=== PATIENT | female | born 1995 ===

== ENCOUNTER 2020-10-21 18:00 | Inpatient (IN) | payer MEDICAID, OTHER, SELFPAY ==
[2020-10-21] MEDS ORDERED: ePHEDrine Sulfate 50 MG/10 ML VIAL ONE (18:49)
[2020-10-21] MEDS ORDERED: Bupivacaine 0.25% HCL 30 ML VIAL ONE (18:49)
[2020-10-21] MEDS ORDERED: Misoprostol 200 MCG TAB PR PRN (19:41)
[2020-10-21] MEDS ORDERED: Lidocaine 1% (PF) 30 ML VIAL SC PRN (19:41)
[2020-10-21] MEDS ORDERED: Promethazine HCl 25 MG/ML VIAL IM PRN (19:41)
[2020-10-21] MEDS ORDERED: Acetaminophen 500 MG TAB PO PRN (19:41)
[2020-10-21] MEDS ORDERED: Methylergonovine 0.2 MG/ML VIAL IM PRN (19:41)
[2020-10-21] MEDS ORDERED: Carboprost 250 MCG/ML AMP IM PRN (19:41)
[2020-10-21] MEDS ORDERED: Butorphanol Tartrate 1 MG/ML VIAL SLOW IVP PRN (19:41)
[2020-10-21] MEDS ORDERED: Ibuprofen 800 MG TAB PO PRN (19:41)
[2020-10-21] MEDS ORDERED: hydrALAZINE 20 MG/ML VIAL SLOW IVP PRN (19:41)
[2020-10-21] MEDS ORDERED: Ondansetron PF 4 MG/2 ML Vial IVP PRN (19:41)
[2020-10-21 19:46] VITALS: BMI 31.8
[2020-10-21] MEDS ORDERED: NS w/ Oxytocin 30 units 500 ML IV PRN (19:55)
[2020-10-21] MEDS ORDERED: NS w/ Oxytocin 30 units 500 ML IVPB SCH (20:00)
[2020-10-21] MEDS: Lactated Ringer's 1,000 ML IV SCH (20:25)
[2020-10-21 20:46] LABS: Hemoglobin 11.9 g/dL (12.0-15.5); Mean Corpuscular HGB CONC 34.4 g/dL (32.0-36.0); Mean Corpuscular Hemoglobin 30.1 pg (27.0-33.0); Mean Corpuscular Volume 87.6 fl (81.6-98.3); Mean Platelet Volume 13.9 fl (7.4-10.4); Platelet Count 143 10x3/uL (150-450); RBC Distribution Width 12.9 % (11.5-14.5); Red Blood Cell (RBC) Count 3.95 10x6/uL (3.90-5.03); White Blood Cell (WBC) Count 5.8 10x3/uL (3.5-10.5)
[2020-10-21 21:14] LABS: Hep B Surf Ag Non-Reactive S/CO (NonReactive); Syphilis Antibody Nonreactive (Nonreactive); Syphilis Antibody Index 0.04 S/CO (<1.00 Non-Reactive)
[2020-10-21 21:21] LABS: HBSAg Index 0.21 S/CO (0-0.99)
[2020-10-22 01:33] LABS: #Monocytes 0.2 10x3/uL (0.0-1.1); #Neutrophils 4.7 10x3/uL (1.5-8.4); %Basophils 0.6 % (0.0-2.0); %Eosinophils 0.3 % (0.0-6.0); %Lymphocytes 27.9 % (18.0-47.0); %Monocytes 3.2 % (0.0-10.0); %Neutrophils 67.6 % (40.0-75.0); Hemoglobin 11.9 g/dL (12.0-15.5); Mean Corpuscular HGB CONC 35.4 g/dL (32.0-36.0); Mean Corpuscular Hemoglobin 30.4 pg (27.0-33.0); Mean Corpuscular Volume 85.9 fl (81.6-98.3); Mean Platelet Volume 13.6 fl (7.4-10.4); RBC Distribution Width 13.1 % (11.5-14.5); Red Blood Cell (RBC) Count 3.91 10x6/uL (3.90-5.03)
[2020-10-22 01:34] LABS: Platelet Count 149 10x3/uL (150-450)
[2020-10-22 01:49] LABS: ALT (SGPT) 39 U/L (8-55); AST (SGOT) 24 U/L (5-34); Albumin 2.9 g/dL (3.5-5.0); Alkaline Phosphatase 220 U/L (40-110); Anion Gap 16 mmol/L (10-20); BUN (Urea Nitrogen) 7 mg/dL (7.0-18.7); Bilirubin, Total 0.4 mg/dL (0.2-1.2); Calc. Creatinine Clearance 191 mL/min (70-130); Calcium 9.2 mg/dL (7.8-10.44); Carbon Dioxide 18 mmol/L (22-29); Chloride 106 mmol/L (98-107); Globulin 3.7 g/dL (2.4-3.5); Glucose 76 mg/dL (70-105); Protein, Total 6.6 g/dL (6.0-8.3); Sodium 136 mmol/L (136-145)
[2020-10-22] MEDS: Misoprostol 100 MCG TAB VAG SCH ×8 (01:50→14:03)
[2020-10-22 01:54] LABS: Creatinine, Urine 34.75 mg/dL (47-110); Protein, Urine Random Quant Less than 10 mg/dL (1-14)
[2020-10-22] MEDS: Ursodiol 300 MG CAP PO SCH ×4 (02:22→22:13)
[2020-10-22] MEDS: Lactated Ringer's 1,000 ML IV SCH ×3 (03:17→14:02)
[2020-10-22] MEDS ORDERED: Fentanyl 4 mcg/Bup 0.1% Cadd 100 ML ONE (06:02)
[2020-10-22] MEDS ORDERED: Fentanyl 100 MCG/2 ML VIAL ONE (09:42)
[2020-10-22] MEDS ORDERED: Lanolin Ointment 7 GM TUBE TOP PRN (10:14)
[2020-10-22] MEDS ORDERED: Adacel (T-DAP) 0.5 ML SYRINGE IM ONE (10:14)
[2020-10-22] MEDS ORDERED: Milk Of Magnesia 30 ML UDCUP PO PRN (10:14)
[2020-10-22] MEDS ORDERED: Bisacodyl 10 MG SUPP PR PRN (10:14)
[2020-10-22] MEDS ORDERED: NS / Oxytocin 40 units/1000ml 1,000 ML IV SCH (10:15)
[2020-10-22] MEDS: Prenatal Vitamin 1 TAB PO SCH (10:44)
[2020-10-22] MEDS: Ferrous Sulfate 325 MG TAB PO SCH (12:16)
[2020-10-22] MEDS: Ibuprofen 800 MG TAB PO SCH ×2 (13:04→21:39)
[2020-10-22] MEDS: Docusate Calcium (SURFAK) 240 MG CAP PO SCH (21:39)
[2020-10-23] MEDS: Ibuprofen 800 MG TAB PO SCH ×2 (05:16→14:43)
[2020-10-23] MEDS: Ursodiol 300 MG CAP PO SCH ×2 (05:17→11:41)
[2020-10-23] MEDS: Lactated Ringer's 1,000 ML IV SCH ×2 (05:59→09:22)
[2020-10-23 06:22] LABS: Glucose 90 mg/dL (70-105)
[2020-10-23 06:23] LABS: Hemoglobin 10.4 g/dL (12.0-15.5); Mean Corpuscular Hemoglobin 29.6 pg (27.0-33.0); Mean Corpuscular Volume 87.2 fl (81.6-98.3); RBC Distribution Width 13.2 % (11.5-14.5); Red Blood Cell (RBC) Count 3.51 10x6/uL (3.90-5.03); White Blood Cell (WBC) Count 7.1 10x3/uL (3.5-10.5)
[2020-10-23 06:24] LABS: Platelet Count 131 10x3/uL (150-450)
[2020-10-23] MEDS: Ferrous Sulfate 325 MG TAB PO SCH (08:17)
[2020-10-23] MEDS: Prenatal Vitamin 1 TAB PO SCH (09:22)
[2020-10-23] MEDS: Docusate Calcium (SURFAK) 240 MG CAP PO SCH (09:22)
[2020-10-23 11:42] VITALS: BP 122/74; TEMP 98.2
[2020-10-23] MEDS ORDERED: Acetaminophen 500 MG TAB PO SCH (13:15)
== END 2020-10-23 16:45 | disposition home or self-care (01) | DRG 805 ==
LOC: CSHLD 19:16 → CSHPP 10-22 12:30
PROVIDERS: ADMIT Student in an Organized Health Care Education/Training Program; ATTEND Student in an Organized Health Care Education/Training Program
PROC: 3E033VJ Introduction of Other Hormone into Peripheral Vein, Percutaneous Approach (ICD-10-PCS; 2020-10-21)
PROC: 10E0XZZ Delivery of Products of Conception, External Approach (ICD-10-PCS; principal; 2020-10-22)
PROC: 10907ZC Drainage of Amniotic Fluid, Therapeutic from Products of Conception, Via Natural or Artificial Opening (ICD-10-PCS; 2020-10-22)
DX: O26.62 Liver and biliary tract disorders in childbirth (principal); K83.1 Obstruction of bile duct; Z37.0 Single live birth; Z3A.37 37 weeks gestation of pregnancy; O24.425 Gestational diabetes mellitus in childbirth, controlled by oral hypoglycemic drugs; O99.02 Anemia complicating childbirth; D64.9 Anemia, unspecified; O76 Abnormality in fetal heart rate and rhythm complicating labor and delivery
CPT/HCPCS: 36415; 51702; 80053; 82570; 82947; 84156; 85025; 85027; 86780; 86850; 86900; 86901; 87340; 88307; J2590; S0020